=== PATIENT | female | born 1985 | race Caucasian/White ===

== ENCOUNTER 2020-11-20 20:04 | Emergency (ER) | payer MEDICAID ==
[~2020-11-20] VITALS: Ht 160 cm; Wt 61.4 kg
[~2020-11-20 20:04] MED LIST: AMOX250T PO; IBUP-1051 PO; IBUP-1985 PO; MOT200T PO
[2020-11-20 20:15] VITALS: BP 115/88
== END 2020-11-20 23:54 | disposition home or self-care (01) ==
LOC: ER 20:05
DX: S90.122A Contusion of left lesser toe(s) without damage to nail, initial encounter (principal); G89.29 Other chronic pain; Z56.0 Unemployment, unspecified; Z98.891 History of uterine scar from previous surgery; Z79.2 Long term (current) use of antibiotics; Z79.899 Other long term (current) drug therapy; W22.8XXA Striking against or struck by other objects, initial encounter; Y93.01 Activity, walking, marching and hiking; Y92.481 Parking lot as the place of occurrence of the external cause; Y99.8 Other external cause status
CPT/HCPCS: 73660; 99283

== ENCOUNTER 2021-01-20 15:49 | Emergency (ER) | payer MEDICAID ==
[~2021-01-20] VITALS: Ht 160 cm; Wt 63.0 kg
[2021-01-20 16:05] VITALS: BP 126/92
[2021-01-20] MEDS ORDERED: ibuprofen tablet 400 MG TABLET PO ONE (16:15)
[2021-01-20] MEDS ORDERED: CYCL-1 PO (17:04)
[2021-01-20] MEDS ORDERED: IBUP-1984 PO (17:04)
== END 2021-01-20 17:46 | disposition home or self-care (01) ==
LOC: ER 15:49
DX: S16.1XXA Strain of muscle, fascia and tendon at neck level, initial encounter (principal); R51.9 Headache, unspecified; G89.29 Other chronic pain; Z98.891 History of uterine scar from previous surgery; Z56.0 Unemployment, unspecified; Z79.2 Long term (current) use of antibiotics; Z79.899 Other long term (current) drug therapy; V87.7XXA Person injured in collision between other specified motor vehicles (traffic), initial encounter; Y93.89 Activity, other specified; Y92.89 Other specified places as the place of occurrence of the external cause; Y99.8 Other external cause status
CPT/HCPCS: 72125; 99284

== ENCOUNTER 2024-04-21 19:28 | Emergency (ER) | payer MEDICAID ==
[~2024-04-21] VITALS: Ht 160 cm; Wt 68.0 kg
[~2024-04-21 19:28] MED LIST changes: +CYCL-1 PO
[2024-04-21 19:49] VITALS: BP 105/68; PULSE 66; RESP 15; O2SAT 98
[2024-04-21] MEDS ORDERED: MELO-100 PO (20:50)
[2024-04-21 21:34] VITALS: TEMP 98.6
[2024-04-21] MEDS ORDERED: IBUP-864 PO (21:38)
== END 2024-04-21 21:35 | disposition home or self-care (01) ==
LOC: ER 19:28
DX: S60.052A Contusion of left little finger without damage to nail, initial encounter (principal); W23.0XXA Caught, crushed, jammed, or pinched between moving objects, initial encounter; Y93.89 Activity, other specified; Y92.89 Other specified places as the place of occurrence of the external cause; Y99.8 Other external cause status
CPT/HCPCS: 73140; 99283; A6449